=== PATIENT | female | born 1995 | race Caucasian/White ===

== ENCOUNTER 2018-08-25 15:42 | Emergency (ER) | payer OTHER ==
[~2018-08-25] VITALS: Ht 162.6 cm; Wt 81.8 kg
[2018-08-25] MEDS ORDERED: RANITAB PO (16:08)
--- NOTE | 2018-08-25 18:25 | REP ---
Right lower extremity deep vein duplex ultrasound: The deep veins demonstrate normal compression, normal Doppler color flow and normal Doppler waveforms with respiration and augmentation from the popliteal vein to the common femoral vein. Impression: There is no right lower extremity deep vein thrombus. Electronically Signed by Manjinder Yee MD 08/25/2018 06:16 P
[2018-08-25 19:11] VITALS: BP 152/82
== END 2018-08-25 19:25 | disposition home or self-care (01) ==
LOC: M ED 15:42
DX: M79.604 Pain in right leg (principal); M70.851 Other soft tissue disorders related to use, overuse and pressure, right thigh; M25.461 Effusion, right knee; K21.9 Gastro-esophageal reflux disease without esophagitis; F41.9 Anxiety disorder, unspecified; Z91.013 Allergy to seafood; Z79.899 Other long term (current) drug therapy